=== PATIENT | female | born 1960 | race Caucasian/White ===

== ENCOUNTER 2017-06-30 09:12 | Emergency (ER) | payer OTHER ==
[2017-06-30 10:48] VITALS: BP 135/72
== END 2017-06-30 10:48 | disposition home or self-care (01) ==
LOC: ED 09:12
DX: B02.9 Zoster without complications (principal); Z88.5 Allergy status to narcotic agent

== ENCOUNTER 2018-08-30 06:32 | Emergency (ER) | payer OTHER ==
[~2018-08-30] VITALS: Ht 154.9 cm; Wt 81.6 kg
[2018-08-30 06:44] VITALS: BP 120/72; Ht 154.9 cm; Wt 81.6 kg
== END 2018-08-30 08:08 | disposition home or self-care (01) ==
LOC: ED 06:32
DX: S93.401A Sprain of unspecified ligament of right ankle, initial encounter (principal); E72.11 Homocystinuria; M81.0 Age-related osteoporosis without current pathological fracture; Z90.710 Acquired absence of both cervix and uterus; Z88.6 Allergy status to analgesic agent; X50.1XXA Overexertion from prolonged static or awkward postures, initial encounter; Y93.89 Activity, other specified; Y92.89 Other specified places as the place of occurrence of the external cause; Y99.8 Other external cause status
CPT/HCPCS: Q0092

== ENCOUNTER 2018-12-08 08:14 | Emergency (ER) | payer OTHER ==
[~2018-12-08] VITALS: Ht 154.9 cm; Wt 86.6 kg
[2018-12-08 08:18] VITALS: Ht 154.9 cm; Wt 86.6 kg
[2018-12-08 08:41] LABS: microscopic required? NO
[2018-12-08 08:50] LABS: BASOPHIL % 0.6 % (0-2)
[2018-12-08 08:51] LABS: PLATELET COUNT 441 x10^3mcL (130-400); RED CELL DISTRIBUTION WIDTH 14.7 % (11.5-14.5)
[2018-12-08 08:55] LABS: urine erythrocyte NEGATIVE (NEGATIVE)
[2018-12-08 09:00] LABS: CARBON DIOXIDE 29.4 mmol/L (21-32); CHLORIDE SERUM 103 mmol/L (98-107); GFR1 > 60 mL/min; GLUCOSE SERUM 99 mg/dL (74-106); SODIUM SERUM 142 mmol/L (136-145)
[2018-12-08 09:09] LABS: ALBUMIN 3.6 g/dL (3.4-5.0); ALKALINE PHOSPHATASE 105 U/L (46-116); ALT/SGPT 24 U/L (14-59); AMYLASE 50 U/L (25-115); AST/SGOT 18 U/L (15-37); BILIRUBIN TOTAL 0.8 mg/dL (0.20-1.00); LIPASE 151 IU/L (73-393); TOTAL PROTEIN, SERUM 7.9 g/dL (6.4-8.2)
[2018-12-08 09:59] VITALS: BP 129/69
== END 2018-12-08 11:15 | disposition home or self-care (01) ==
LOC: ED 08:14
PROVIDERS: Specialist
DX: R10.12 Left upper quadrant pain (principal); M81.0 Age-related osteoporosis without current pathological fracture; Z90.710 Acquired absence of both cervix and uterus; Z90.49 Acquired absence of other specified parts of digestive tract; Z88.5 Allergy status to narcotic agent; Z98.890 Other specified postprocedural states
CPT/HCPCS: J1885; J7030; Q0092